=== PATIENT | female | born 1970 | race American Indian/Alaskan Native ===

== ENCOUNTER 2017-12-09 19:44 | Emergency (ER) | payer SELFPAY ==
[2017-12-09] MEDS ORDERED: NACL 0.9% 1000 ML 1,000 ML IV ONE (20:42)
[2017-12-09 20:56] LABS: Basophils # (Auto) 0.1 K/mm3 (0.0-0.1); Basophils % (Auto) 1.1 % (0.0-1.8); Eosinophils # (Auto) 0.1 K/mm3 (0.0-0.4); Eosinophils % (Auto) 1.6 % (0.0-4.3); Hematocrit 31.6 % (30.3-42.9); Hemoglobin 10.1 gm/dl (10.1-14.3); Lymphocytes # (Auto) 2.7 K/mm3 (1.2-5.4); Lymphocytes % (Auto) 39.1 % (13.4-35.0); Mean Corpuscular HGB Conc 32 % (30-34); Mean Corpuscular Volume 71 fl (79-97); Monocytes # (Auto) 0.4 K/mm3 (0.0-0.8); Monocytes % (Auto) 6.3 % (0.0-7.3); Platelet Count 321 K/mm3 (140-440); Red Blood Count 4.49 M/mm3 (3.65-5.03)
[2017-12-09 21:10] LABS: Alanine Aminotransferase 8 units/L (7-56); Albumin 3.8 g/dL (3.9-5); BUN/Creatinine Ratio 14; Blood Urea Nitrogen 10 mg/dL (7-17); Calcium 8.7 mg/dL (8.4-10.2); Hemolysis Index 3
[2017-12-09 21:13] LABS: Mean Corpuscular Hemoglobin 23 pg (28-32); Red Cell Distribution Width 22.5 % (13.2-15.2)
[2017-12-09 22:16] LABS: Bilirubin,Urine NEG (Negative); Color,Urine Yellow (Yellow)
[2017-12-09 22:17] LABS: Blood,Urine NEG (Negative); Mucus,Urine 1+ /HPF; Urobilinogen,Urine < 2.0 mg/dL (<2.0); WBC,Urine < 1.0 /HPF (0.0-6.0)
--- NOTE | 2017-12-10 02:21 | Emergency Department Report ---
<ZEE WOLFF - Last Filed: 12/10/17 05:40> ED Abdominal Pain HPI - General Chief Complaint: Abdominal Pain Stated Complaint: SEVERE STOMACH/BACK PAIN Time Seen by Provider: 12/10/17 02:19 Source: patient, RN notes reviewed Mode of arrival: Ambulatory Limitations: No Limitations - History of Present Illness Initial Comments: This is a 47-year-old female who is on known to this provider previously. Her past medical history includes diabetes, hypertension, obesity, diverticulitis. She reports a partial colonic resection in 2010. The patient presents to the ER with a complaint of intermittent right flank pain , and right lower quadrant pain. It has been present for 6 days. It is intermittent. It does not radiate anywhere. Pain increases with palpation. It decreases with rest. There is no vomiting, there is nausea, there is no dysuria. Patient endorses constipation. There is no headache, neck pain, chest pain, there is no left lower quadrant pain, there is no extremity pain, weakness or numbness. Patient presented to the ER because she reports that her pain got worse. MD Complaint: abdominal pain, flank pain -: Gradual Location: RLQ, R flank Radiation: R flank, back Severity: moderate Quality: aching Consistency: intermittent Improves With: other Worsens With: other Associated Symptoms: nausea, constipation. denies: vomiting, diarrhea, fever, chills, dysuria, hematemesis, hematochezia, melena, hematuria, anorexia, syncope - Related Data Previous Rx's Medication Instructions Recorded Last Taken Type Acetaminophen [Tylenol Arthritis] 650 mg PO Q6HR PRN #30 tablet.er 12/10/17 Unknown Rx Ibuprofen [Motrin] 600 mg PO Q8H PRN #30 tablet 12/10/17 Unknown Rx Ondansetron [Zofran Odt] 4 mg PO Q8HR PRN #20 tab.rapdis 12/10/17 Unknown Rx Allergies Allergy/AdvReac Type Severity Reaction Status Date / Time lisinopril Allergy Hives Verified 12/09/17 20:38 ED Review of Systems ROS: Stated complaint: SEVERE STOMACH/BACK PAIN Other details as noted in HPI Comment: All other systems reviewed and negative ED Past Medical Hx - Past Medical History Previous Medical History?: Yes Hx Hypertension: Yes Hx Diabetes: Yes Hx Asthma: Yes Additional medical history: diverticulitis - Surgical History Past Surgical History?: Yes Additional Surgical History: colon - Social History Smoking Status: Never Smoker Substance Use Type: Alcohol - Medications Home Medications: Home Medications Medication Instructions Recorded Confirmed Last Taken Type Acetaminophen [Tylenol Arthritis] 650 mg PO Q6HR PRN #30 tablet.er 12/10/17 Unknown Rx Ibuprofen [Motrin] 600 mg PO Q8H PRN #30 tablet 12/10/17 Unknown Rx Ondansetron [Zofran Odt] 4 mg PO Q8HR PRN #20 tab.rapdis 12/10/17 Unknown Rx ED Physical Exam - General Limitations: No Limitations General appearance: alert, obese - Head Head exam: Present: atraumatic, normocephalic - Eye Eye exam: Present: normal appearance, EOMI. Absent: scleral icterus - ENT ENT exam: Present: normal exam, normal orophraynx, mucous membranes moist, normal external ear exam - Neck Neck exam: Present: normal inspection, full ROM. Absent: tenderness, meningismus - Respiratory Respiratory exam: Present: normal lung sounds bilaterally. Absent: respiratory distress - Cardiovascular Cardiovascular Exam: Present: regular rate, normal rhythm, normal heart sounds. Absent: bradycardia, tachycardia, irregular rhythm, systolic murmur, diastolic murmur, rubs, gallop - GI/Abdominal GI/Abdominal exam: Present: soft, tenderness, other (there is right lower quadrant tenderness, there is right flank tenderness, there is right upper quadrant tenderness, there is right CVA tenderness). Absent: distended, guarding, rebound, rigid, pulsatile mass - Speculum exam: Present: normal speculum exam, vaginal bleeding Bi-manual exam: Present: adnexal tenderness (right), other (chaperoned by nurse Sandra Christianson). Absent: cervical motion tendernes, adnexal mass, uterine enlargement, uterine tenderness - Extremities Exam Extremities exam: Present: normal inspection, full ROM, normal capillary refill , other (2+ pulses noted in the bilateral upper, lower extremities. Compartments soft. No long bony tenderness. The pelvis is stable.). Absent: tenderness, pedal edema, joint swelling, calf tenderness - Back Exam Back exam: Present: normal inspection, full ROM, CVA tenderness (R). Absent: tenderness, paraspinal tenderness, vertebral tenderness - Neurological Exam Neurological exam: Present: alert, oriented X3, CN II-XII intact, normal gait, other (Extraocular movements intact. Tongue midline. No facial droop. Facial sensation intact to light touch in the V1, V2, V3 distribution bilaterally. 5 and 5 strength in 4 extremities.. Sensation is intact to light touch in 4 extremities.). Absent: motor sensory deficit - Psychiatric Psychiatric exam: Present: normal affect, normal mood - Skin Skin exam: Present: warm, dry, intact, normal color. Absent: rash ED Course Vital Signs 12/09/17 12/10/17 12/10/17 20:39 05:36 06:51 Temperature 98.6 F Pulse Rate 77 Respiratory 16 Rate Blood Pressure 175/99 132/80 O2 Sat by Pulse 98 99 100 Oximetry - Reevaluation(s) Reevaluation #1: 12/10/17 03:40 Differential diagnosis, including but not limited to: Pneumonia, biliary colic, renal colic, intra-abdominal infection, appendicitis, perforated viscus, constipation, colitis, malignancy Assessment and plan: 47-year-old female with progressive right-sided abdominal pain, in the right CVA, right upper quadrant, right flank and right lower quadrant. She is tender but afebrile with reassuring vital signs. Her pain will be treated with hydromorphone, laboratory studies reviewed and they are unremarkable, and a CT scan of the abdomen and pelvis is pending at this time. Reevaluation #2: 12/10/17 05:40 CT scan of the abdomen and pelvis is negative for acute disease. Patient reports her pain is improved. We have performed a gynecologic exam and she has right adnexal tenderness. She is also finishing up her menstruation. Pelvic ultrasound ordered. Sunshine be transferred to the oncoming physician, Dr. Okeefe, to follow-up on ultrasound, and if negative, discharge with outpatient obstetrics follow-up. ED Medical Decision Making - Lab Data Result diagrams: 12/09/17 20:45 12/09/17 20:45 Vital Signs 12/09/17 20:39 Temperature 98.6 F Pulse Rate 77 Respiratory 16 Rate Blood Pressure 175/99 O2 Sat by Pulse 98 Oximetry Lab Results 12/09/17 12/09/17 12/09/17 Range/Units 20:45 20:45 21:49 WBC 6.9 (4.5-11.0) K/mm3 RBC 4.49 (3.65-5.03) M/mm3 Hgb 10.1 (10.1-14.3) gm/dl Hct 31.6 (30.3-42.9) % MCV 71 L (79-97) fl MCH 23 L (28-32) pg MCHC 32 (30-34) % RDW 22.5 H (13.2-15.2) % Plt Count 321 (140-440) K/mm3 Lymph % (Auto) 39.1 H (13.4-35.0) % [place] % (Auto) 6.3 (0.0-7.3) % Eos % (Auto) 1.6 (0.0-4.3) % Baso % (Auto) 1.1 (0.0-1.8) % Lymph # 2.7 (1.2-5.4) K/mm3 [place] # 0.4 (0.0-0.8) K/mm3 Eos # 0.1 (0.0-0.4) K/mm3 Baso # 0.1 (0.0-0.1) K/mm3 Seg Neutrophils % 51.9 (40.0-70.0) % Seg Neutrophils # 3.6 (1.8-7.7) K/mm3 Sodium 138 (137-145) mmol/L Potassium 4.0 (3.6-5.0) mmol/L Chloride 103.4 (98-107) mmol/L Carbon Dioxide 24 (22-30) mmol/L Anion Gap 15 mmol/L BUN 10 (7-17) mg/dL Creatinine 0.7 (0.7-1.2) mg/dL Estimated GFR > 60 ml/min BUN/Creatinine Ratio 14 % Glucose 113 H (65-100) mg/dL Calcium 8.7 (8.4-10.2) mg/dL Total Bilirubin 0.20 (0.1-1.2) mg/dL AST 12 (5-40) units/L ALT 8 (7-56) units/L Alkaline Phosphatase 45 (35-129) units/L Total Protein 7.1 (6.3-8.2) g/dL Albumin 3.8 L (3.9-5) g/dL Albumin/Globulin Ratio 1.2 % Urine Color Yellow (Yellow) Urine Turbidity Clear (Clear) Urine pH 6.0 (5.0-7.0) Ur Specific [place] 1.023 (1.003-1.030) Urine Protein 30 mg/dl (Negative) mg/dL Urine Glucose (UA) Neg (Negative) mg/dL Urine Ketones Neg (Negative) mg/dL Urine Blood Neg (Negative) Urine Nitrite Neg (Negative) Urine Bilirubin Neg (Negative) Urine Urobilinogen < 2.0 (<2.0) mg/dL Ur Leukocyte Esterase Neg (Negative) Urine WBC (Auto) < 1.0 (0.0-6.0) /HPF Urine RBC (Auto) 3.0 (0.0-6.0) /HPF U Epithel Cells (Auto) < 1.0 (0-13.0) /HPF Urine Mucus 1+ /HPF Urine HCG, Qual (Negative) 12/10/17 Range/Units Unknown WBC (4.5-11.0) K/mm3 RBC (3.65-5.03) M/mm3 Hgb (10.1-14.3) gm/dl Hct (30.3-42.9) % MCV (79-97) fl MCH (28-32) pg MCHC (30-34) % RDW (13.2-15.2) % Plt Count (140-440) K/mm3 Lymph % (Auto) (13.4-35.0) % [place] % (Auto) (0.0-7.3) % Eos % (Auto) (0.0-4.3) % Baso % (Auto) (0.0-1.8) % Lymph # (1.2-5.4) K/mm3 [place] # (0.0-0.8) K/mm3 Eos # (0.0-0.4) K/mm3 Baso # (0.0-0.1) K/mm3 Seg Neutrophils % (40.0-70.0) % Seg Neutrophils # (1.8-7.7) K/mm3 Sodium (137-145) mmol/L Potassium (3.6-5.0) mmol/L Chloride (98-107) mmol/L Carbon Dioxide (22-30) mmol/L Anion Gap mmol/L BUN (7-17) mg/dL Creatinine (0.7-1.2) mg/dL Estimated GFR ml/min BUN/Creatinine Ratio % Glucose (65-100) mg/dL Calcium (8.4-10.2) mg/dL Total Bilirubin (0.1-1.2) mg/dL AST (5-40) units/L ALT (7-56) units/L Alkaline Phosphatase (35-129) units/L Total Protein (6.3-8.2) g/dL Albumin (3.9-5) g/dL Albumin/Globulin Ratio % Urine Color (Yellow) Urine Turbidity (Clear) Urine pH (5.0-7.0) Ur Specific [place] (1.003-1.030) Urine Protein (Negative) mg/dL Urine Glucose (UA) (Negative) mg/dL Urine Ketones (Negative) mg/dL Urine Blood (Negative) Urine Nitrite (Negative) Urine Bilirubin (Negative) Urine Urobilinogen (<2.0) mg/dL Ur Leukocyte Esterase (Negative) Urine WBC (Auto) (0.0-6.0) /HPF Urine RBC (Auto) (0.0-6.0) /HPF U Epithel Cells (Auto) (0-13.0) /HPF Urine Mucus /HPF Urine HCG, Qual Negative (Negative) Critical care attestation.: If time is entered above; I have spent that time in minutes in the direct care of this critically ill patient, excluding procedure time. ED Disposition Clinical Impression: Abdominal pain, DUB (dysfunctional uterine bleeding) Disposition: TO HOME OR SELFCARE Is pt being admited?: No Does the pt Need Aspirin: No Condition: Good Instructions: Dysfunctional Uterine Bleeding (ED) Additional Instructions: Cultures were sent today, results will be available in the next 3-5 days. Have a barrel drainer or primary care doctor contact the medical records department to obtain culture results. Follow up with a barrel drainer within the next 5-7 days. Return to the ER right away with new pain, worsened pain, migration of pain, productive vomiting, change in mental status, confusion, inability to tolerate liquid feedings. Prescriptions: Acetaminophen [Tylenol Arthritis] 650 mg PO Q6HR PRN #30 tablet.er PRN Reason: Pain Ibuprofen [Motrin] 600 mg PO Q8H PRN #30 tablet PRN Reason: Pain Ondansetron [Zofran Odt] 4 mg PO Q8HR PRN #20 tab.rapdis PRN Reason: Nausea Referrals: PRIMARY CARE, [Primary Care Provider] - 3-5 Days [facility] [Provider Group] - 3-5 Days [facility] [Provider Group] - 3-5 Days [facility] [Provider Group] - 3-5 Days <MARTINEZMALLIKA C - Last Filed: 12/10/17 07:35> ED Medical Decision Making - Lab Data Result diagrams: 12/09/17 20:45 12/09/17 20:45 - Radiology Data Radiology results: report reviewed FINAL REPORT PROCEDURE: US PELVIS transvaginal TECHNIQUE: Real-time transvaginal sonography in multiple planes of pelvis was performed with image documentation. This examination was performed with doppler. HISTORY: pelvic pain COMPARISON: No prior studies are available for comparison. FINDINGS: UTERUS Size: 10.4 x 6.1 x 6.5 cm. Endometrial thickness: 12.3 mm. Orientation: anteverted. Cervix: Normal. Fibroids/masses: None. RIGHT Ovary: Not identified. LEFT Ovary: 3.3 x 2.1 x 3 cm. Appearance: Normal. Normal blood flow. There is no evidence of torsion. Pelvic fluid: None. Other: None. IMPRESSION: Normal uterus and left ovary. The right ovary is not seen. There is no free pelvic fluid. ED Disposition Is pt being admited?: No Does the pt Need Aspirin: No Time of Disposition: 07:35
[2017-12-10] MEDS ORDERED: DILAUDID IV ONE (02:30)
[2017-12-10] MEDS ORDERED: ZOFRAN IV ONE (02:30)
[2017-12-10 02:40] LABS: HCG Qualitative,Urine Negative (Negative)
[2017-12-10] MEDS ORDERED: NACL 0.9% 50 ML ONE (02:51)
--- NOTE | 2017-12-10 04:37 | Cat Scan Report ---
FINAL REPORT PROCEDURE: CT ABDOMEN PELVIS W CON TECHNIQUE: Computerized axial tomography of the abdomen and pelvis was performed after the IV injection of iodinated nonionic contrast. HISTORY: abd pain COMPARISON: No prior studies are available for comparison. FINDINGS: Visualized lower thorax: No significant abnormality. Liver: Normal size and attenuation. Spleen: Normal size and attenuation. Gallbladder and biliary system: Normal. Pancreas: Normal. Adrenals: Normal. Kidneys: Normal. GI tract: There is no bowel obstruction, colitis or enteritis. There has been prior colon surgery. The appendix is normal . Lymph nodes and mesentery: Normal. Vasculature: Normal. Bladder: Normal. Reproductive organs: Uterus and ovaries are intact.. Peritoneum: There is no ascites or free air, abscess or adenopathy.. Musculoskeletal structures: No significant abnormality. Other: None. IMPRESSION: There is no bowel obstruction, colitis or enteritis. There has been prior colon surgery. The appendix is normal . Uterus and ovaries are intact.. There is no ascites or free air, abscess or adenopathy..
--- NOTE | 2017-12-10 06:28 | Ultrasound Report ---
FINAL REPORT PROCEDURE: US PELVIS DUPLEX DOPPLER COMP TECHNIQUE: Real-time transabdominal sonography in multiple planes of pelvis was performed with image documentation. This examination was performed without Doppler. Vascular abnormalities, including ovarian torsion, will not be detectable without Doppler evaluation. CPT 30773 HISTORY: pelvic pain COMPARISON: No prior studies are available for comparison. FINDINGS: UTERUS Size: 10.4 x 6.1 x 6.5 cm. Endometrial thickness: 12.3 mm. Orientation: anteverted. Cervix: Normal. Fibroids/masses: None. RIGHT Ovary: Not identified. LEFT Ovary: 3.3 x 2.1 x 3 cm. Appearance: Normal. Pelvic fluid: None. Other: None. IMPRESSION: Normal uterus and left ovary. The right ovary is not seen. There is no free pelvic fluid.
--- NOTE | 2017-12-10 06:30 | Ultrasound Report ---
FINAL REPORT PROCEDURE: US PELVIS transvaginal TECHNIQUE: Real-time transvaginal sonography in multiple planes of pelvis was performed with image documentation. This examination was performed with doppler. HISTORY: pelvic pain COMPARISON: No prior studies are available for comparison. FINDINGS: UTERUS Size: 10.4 x 6.1 x 6.5 cm. Endometrial thickness: 12.3 mm. Orientation: anteverted. Cervix: Normal. Fibroids/masses: None. RIGHT Ovary: Not identified. LEFT Ovary: 3.3 x 2.1 x 3 cm. Appearance: Normal. Normal blood flow. There is no evidence of torsion. Pelvic fluid: None. Other: None. IMPRESSION: Normal uterus and left ovary. The right ovary is not seen. There is no free pelvic fluid.
[2017-12-10 08:11] VITALS: BP 136/85
== END 2017-12-10 08:06 | disposition home or self-care (01) ==
LOC: ED 19:44
DX: N93.8 Other specified abnormal uterine and vaginal bleeding (principal); K59.00 Constipation, unspecified; I10 Essential (primary) hypertension; E11.9 Type 2 diabetes mellitus without complications; J45.909 Unspecified asthma, uncomplicated; Z88.8 Allergy status to other drugs, medicaments and biological substances
CPT/HCPCS: 36415; 74177; 76830; 80053; 81001; 81025; 85025; 87210; 87591; 93975; 96374; 96375; 99284; J1170; J2405; J7030; Q9967

== ENCOUNTER 2020-07-04 10:09 | Outpatient (CLI) | payer MEDICAID ==
--- NOTE | 2020-07-04 12:43 | Fluoroscopy Report ---
Barium swallow Indication: GASTRO-ESOPHAGEAL REFLUX DISEASE WITHOUT ESOPHAGITIS. Technique: Single and double contrast barium technique utilized to evaluate the esophagus. Findings: No mucosal irregularity, mass, mass effect, or critical stenosis. There were no abnormal tertiary contractions as seen with dysmotility. No gastroesophageal reflux. Impression: Unremarkable exam. Fluoroscopic time: 0.7 minutes Number of fluoroscopic images: 11 Signer Name: Remberto Sena MD Signed: 07/04/2020 12:37 PM Workstation Name: [id number]
== END 2020-07-04 10:10 | disposition home or self-care (01) ==
LOC: FLUORO 10:09
PROVIDERS: ATTEND Surgery
DX: K21.9 Gastro-esophageal reflux disease without esophagitis (principal)
CPT/HCPCS: 74246

== ENCOUNTER 2020-08-22 11:14 | Outpatient (CLI) | payer MEDICAID | END 2020-08-22 11:15 | disposition home or self-care (01) | LOC: CARD 11:14 | PROVIDERS: ATTEND Surgery | DX: Z01.818 Encounter for other preprocedural examination (principal); E66.01 Morbid (severe) obesity due to excess calories | CPT/HCPCS: 93005; 93017 ==

== ENCOUNTER 2020-08-29 11:00 | Outpatient (CLI) | payer MEDICAID | END 2020-08-29 11:01 | disposition home or self-care (01) | LOC: SLR 11:00 | PROVIDERS: ATTEND Surgery | DX: G47.30 Sleep apnea, unspecified (principal) | CPT/HCPCS: 95810 ==

== ENCOUNTER → 2020-10-17 | Outpatient (CLI) | payer MEDICAID ==
--- NOTE | 2020-10-30 22:48 | Pulmonary Function Test ---
DATE OF VISIT: 10/17/2020 NO DICTATION TID: [id number] RECEIPT: [id number] JONO
--- NOTE | 2020-10-30 23:45 | Pulmonary Function Test ---
DATE OF VISIT: 10/20/2020 SPIROMETRY: FVC 2.41 liters, which is 82% of the predicted. FEV1 is 2.04 liters, which is 86% of the predicted. FEV1/FVC ratio is 85. Flow volume loop. FEF 25-75% is 2.45 liters per second, which is 97% of predicted. IMPRESSION: Normal spirometry. TID: [id number] RECEIPT: [id number] ALESHIA/MARTY
--- NOTE | 2021-02-05 03:21 | Pulmonary Function Test ---
DATE OF VISIT: 10/20/2020 SPIROMETRY REPORT SPIROMETRY: FVC 2.41 L, which is 82% of the predicted. FEV1 is 2.44, which is 86% of the predicted. FEV1/FVC ratio is 85 and flow volume loop, FEF 25-75%, 2.4 liters per second, which is 97% of the predicted. MVV is 61% of the predicted. Tidal volume absolute is 0.71 liters. IMPRESSION: Normal spirometry. TID: [id number] RECEIPT: [id number] RSM/NIS
== END | disposition home or self-care (01) ==
LOC: SLR 11:00
PROVIDERS: ATTEND Surgery
DX: G47.33 Obstructive sleep apnea (adult) (pediatric) (principal)
CPT/HCPCS: 95811

== ENCOUNTER 2020-10-20 14:02 | Outpatient (CLI) | payer MEDICAID | END 2020-10-20 14:03 | disposition home or self-care (01) | LOC: PF 14:02 | PROVIDERS: ATTEND Surgery | DX: E66.2 Morbid (severe) obesity with alveolar hypoventilation (principal) | CPT/HCPCS: 94010 ==

== ENCOUNTER 2021-03-09 06:04 | Inpatient (IN) | payer MEDICAID ==
[2021-03-03 10:45] LABS: Hematocrit 40.9 % (30.3-42.9); Hemoglobin 13.2 gm/dl (10.1-14.3); Mean Corpuscular HGB Conc 32 % (30-34); Mean Corpuscular Volume 83 fl (79-97); Platelet Count 323 K/mm3 (140-440); Red Blood Count 4.93 M/mm3 (3.65-5.03); Red Cell Distribution Width 14.8 % (13.2-15.2)
[2021-03-03 11:11] LABS: Alanine Aminotransferase 11 units/L (7-56); Albumin 4.2 g/dL (3.9-5); Blood Urea Nitrogen 18 mg/dL (7-17); Calcium 9.6 mg/dL (8.4-10.2); Hemolysis Index 0
[2021-03-03 11:13] LABS: BUN/Creatinine Ratio 30
--- NOTE | 2021-03-03 11:19 | Anesthesia Consultation ---
Anesthesia Consult and Med Hx Date of service: 03/09/21 - Airway Anesthetic Teeth Evaluation: Good ROM Head & Neck: Adequate Mental/Hyoid Distance: Adequate Mallampati Class: Class II Intubation Access Assessment: Probably Good - Pulmonary Exam CTA: Yes - Cardiac Exam Cardiac Exam: RRR - Pre-Operative Health Status ASA Pre-Surgery Classification: ASA3 Proposed Anesthetic Plan: General - Pulmonary Hx Smoking: No Hx Asthma: Yes (triggered by seasonal allergies) Hx Respiratory Symptoms: No (normal spirometry) Hx Sleep Apnea: Yes (+ CPAP) - Cardiovascular System Hx Hypertension: Yes Hx Heart Attack/AMI: No (negative stress test) Hx Percutaneous Transluminal Coronary Angioplasty (PTCA): No Hx Cardia Arrhythmia: No - Central Nervous System CVA: No - Endocrine Hx Renal Disease: No Hx Liver Disease: No Hx Insulin Dependent Diabetes: Yes Hx Thyroid Disease: No - Hematic Hx Anemia: Yes - Other Systems Hx Obesity: Yes (BMI 43) - Additional Comments Anesthesia Medical History Comments: No hx anesthetic complications.
[~2021-03-09 06:04] MED LIST: ACETAMINOPHEN IV 1,000 MG/100 ML BOTTLE IV NR; ENOXAPARIN 40 MG/0.4 ML INJ SUB-Q NR; GABAPENTIN 500 MG/10 ML ORAL LIQD PO NR; LACTATED RINGERS 1,000 ML IV SCH; MIDAZOLAM 2 MG/2 ML INJ IV NR; SCOPOLAMINE TRANSDERMAL PATCH 72 HR TD NR; methOCARBAMOL 1,000 MG in SODIUM CHLORIDE 0.9% 250ML 250 ML IV SCH
[2021-03-09] MEDS ORDERED: BUPIVACAINE/PF (0.25%) 2.5 MG/ML 30 ML VIAL INFILTRATI ONE ×2 (07:08→08:48)
[2021-03-09] MEDS ORDERED: LIDOCAINE 1%/EPINEPHRINE 1:100,000 VIAL (20 ML) INFILTRATI ONE (07:09)
--- NOTE | 2021-03-09 07:20 | Anesthesia Day of Surgery ---
Anesthesia Day of Surgery - Day of Surgery Patient Examined: Yes Patient H&P Reviewed: Yes Patient is NPO: Yes
[2021-03-09] MEDS ORDERED: ROCURONIUM 50 MG/5 ML INJ IV ONE ×2 (07:37→11:23)
[2021-03-09] MEDS ORDERED: dexAMETHasone 20 MG/5 ML VIAL ONE ×2 (07:37→07:39)
[2021-03-09] MEDS ORDERED: KETOROLAC 30 MG/1 ML INJ ONE (07:37)
[2021-03-09] MEDS ORDERED: LIDOCAINE MPF (2%) 20 MG/1 ML VIAL 5 ML ONE ×4 (07:37→07:39)
[2021-03-09] MEDS ORDERED: MAGNESIUM SULFATE 4 GM/100 ML BAG IV ONE (07:42)
[2021-03-09] MEDS ORDERED: SODIUM CHLORIDE P/F VIAL 10 ML 10 ML ONE (07:43)
[2021-03-09] MEDS ORDERED: HYDROmorphone 1 MG/1 ML INJ IV PRN ×3 (08:00→13:00)
[2021-03-09] MEDS ORDERED: PIPERACIL/TAZOBACTA 4.5/NS 100 4.5 GM/100 ML VIAL IV SCH (08:00)
[2021-03-09] MEDS ORDERED: ONDANSETRON 4 MG/2 ML INJ IV PRN ×2 (08:00→13:00)
[2021-03-09] MEDS ORDERED: LIDOCAINE/EPI 1% 1:50,000 (OR) 20 ML VIAL INFILTRATI ONE (08:48)
[2021-03-09] MEDS ORDERED: SODIUM CHLORIDE 0.9% IRR 1,500 ML BOTTLE IR ONE (08:48)
[2021-03-09] MEDS ORDERED: SODIUM CHLORIDE 0.9% IRRIG SOLN 2000 ML IR ONE (08:48)
[2021-03-09] MEDS ORDERED: NEOSTIGMINE 10MG/10 ML INJ MDV ONE (11:33)
[2021-03-09] MEDS ORDERED: GLYCOPYRROLATE 0.4 MG/2 ML INJ ONE (11:33)
[2021-03-09] MEDS ORDERED: NON-FORMULARY EACH (Albuterol Sulfate [Proair Respiclick] 90 MCG Aer.Pow.Ba) IH PRN (11:34)
--- NOTE | 2021-03-09 11:43 | Operative Report ---
Operative Report Operative Report: DATE OF PROCEDURE: 03/09/2021 SURGEON: Juanito Kendall M.D. AIRPORT REFUELING HANDLER: Lucie Julien CSA MD PREOPERATIVE DIAGNOSIS: Morbid obesity. POSTOPERATIVE DIAGNOSES: Morbid obesity PROCEDURES PERFORMED: 1. Laparoscopic gastric bypass. 2. laparoscopic hiatal hernia repair 3. Extensive lysis of adhesions ANESTHESIA: General endotracheal tube intubation. SPECIMENS: None. ESTIMATED BLOOD LOSS: Less than 20 mL. FINDINGS: Normal anatomy. COMPLICATIONS: None. INDICATION: Ms. Castillo is a 50-year-old female with history of morbid obesity and DM, HTN, high cholesterol who is here for bariatric surgery for weight loss. She signed informed consent and expressed understanding of risks and benefits. DESCRIPTION OF PROCEDURE: Patient was brought to the OR suite, laid in supine position. Bilateral lower extremity SCDs were placed. General anesthesia was induced via successful endotracheal tube intubation. Patient's abdomen was prepped and draped in sterile fashion. A veress needle was used to insuflate the abdomen to a pressure of 15 mmHg in the left subcostal region. Using Optiview technique, a 5- mm trocar was placed into the abdominal cavity under direct vision just superior and to the left of the umbilicus. There was noted to be no gross injury to any intraabdominal structures. 12 mm in the right mid abdomen mid clavicular line and three 5-mm trocars in the right upper quadrant, epigastric areas were placed under direct visualization. There was noted to be extensive omental adhesions to the small bowel and colon, as well as a loop of colon densely adhered to the anterior abdominal wall and of the umbilicus. It took approximately 45 minutes to carefully lyse adhesions to allow for enough small bowel to perform the bypass. At this time, the ligament of Treitz identified and followed down approximately 75 cm and the jejunum was transected. The distal segment of jejunum was then traced for approximately 100 cm and a stable [id number] jejunojejunostomy was performed. The common enterotomy was closed with 2 firings of the endoscopic stapler. The mesenteric defect was closed with running Surgidac suture. This anastomosis was found to be patent without kink, obstruction or bleeding. At this time, the patient was placed in steep reverse Trendelenburg position. A liver retractor was placed through the epigastric port to elevate the left lateral lobe of the liver. There was noted to be a significant hiatal hernia, with the GE junction ap proximately 1 to 2 cm above the level diaphragm. The hiatal hernia sac was dissected free from the distal esophagus and proximal stomach until the GE junction was resting without tension about 2 cm below the diaphragm. After this an anterior crura plasty was performed using Surgidac suture in a U stitch fashion. A small gastric pouch was formed with serial firings of the blue load on a laparoscopic stapler. The Tosin limb was then brought in an antegastric antecolic fashion and secured with 2 stay sutures to the gastric pouch. After this, the enterotomies were made with Harmonic scalpel, and a [id number] stapled gastrojejunostomy was performed with a mechanical stapler. After this, a 2-layer running closure using absorbable V-lock suture were done, the first being mucosal approximation prior to completion of the first layer. Then I passed and an EGD scope beyond the anastomosis to act as a stent. The first layer was completed, the second was then performed. After this, the EGD was retracted slightly. A bowel clamp was placed in a proximal Tosin limb. The anastomosis was submerged under saline. Via intraluminal EGD insufflation, there was noted be no bubbles in the saline indicating an airtight anastomosis. There was noted to be no obstruction or bleeding intraluminally in the pouch or the anastomosis. At this time, the scope was removed. The saline was aspirated. Vistaseal was placed over the anastomosis. All trocars were removed under direct visualization and the abdomen was then desufflated. A TAP block was performed using a total of 60 mL 0.25% Marcaine along bilateral mid axillary lines starting at the subcostal margin at the level of the umbilicus. The 12mm trocar site was closed using POD and a Alexis Peri device for fear that after surgery it become incarcerated. The skin incisions were closed with 4-0 Monocryl followed by Dermabond dressings. Patient was awoken and taken to recovery in stable condition. All counts were correct.
[2021-03-09] MEDS ORDERED: SIMETHICONE 80 MG CHEW TAB PO PRN (13:00)
[2021-03-09] MEDS ORDERED: METOCLOPRAMIDE 10 MG/2 ML INJ IV PRN (13:00)
[2021-03-09] MEDS ORDERED: MORPHINE 2 MG/1 ML INJ IV PRN (13:00)
[2021-03-09] MEDS ORDERED: hydrALAZINE 20 MG/1 ML INJ IV PRN (13:00)
[2021-03-09] MEDS ORDERED: LACTATED RINGERS 1,000 ML IV SCH (13:00)
[2021-03-09] MEDS ORDERED: LORazepam 1 MG TAB PO PRN (13:00)
[2021-03-09] MEDS ORDERED: DEXTROSE 50% IN WATER (25GM) 50 ML SYRINGE IV PRN (13:00)
[2021-03-09] MEDS ORDERED: GABAPENTIN 300 MG CAP PO SCH (13:00)
[2021-03-09] MEDS ORDERED: ALBUTEROL 8.5 GM MDI INHALATION IH PRN (13:00)
[2021-03-09] MEDS: KETOROLAC 30 MG/1 ML INJ IV SCH ×2 (16:49→22:17)
[2021-03-09] MEDS: ACETAMINOPHEN IV 1,000 MG/100 ML BOTTLE IV SCH ×2 (16:53→19:00)
--- NOTE | 2021-03-09 17:23 | Post Anesthesia Evaluation ---
- Post Anesthesia Evaluation Patient Participated: Yes Airway Patent: Yes Stable Respiratory Function: Yes Nausea/Vomiting: No Temp > 96.8F: Yes Pain Manageable: Yes Adequeate Hydration: Yes Anesthesia Complications: No Block Receding Appropriately: Not Applicable Patient on Ventilator: No
[2021-03-09] MEDS: PANTOPRAZOLE 40 MG INJ IV SCH (18:06)
[2021-03-10] MEDS: ACETAMINOPHEN IV 1,000 MG/100 ML BOTTLE IV SCH ×4 (01:00→17:55)
[2021-03-10] MEDS: KETOROLAC 30 MG/1 ML INJ IV SCH ×4 (01:22→20:52)
[2021-03-10 06:54] LABS: Basophils # (Auto) 0.1 K/mm3 (0.0-0.1); Basophils % (Auto) 0.8 % (0.0-1.8); Eosinophils % (Auto) 0.1 % (0.0-4.3); Hematocrit 37.3 % (30.3-42.9); Lymphocytes # (Auto) 1.5 K/mm3 (1.2-5.4); Lymphocytes % (Auto) 20.5 % (13.4-35.0); Mean Corpuscular HGB Conc 32 % (30-34); Mean Corpuscular Volume 84 fl (79-97); Monocytes # (Auto) 0.5 K/mm3 (0.0-0.8); Monocytes % (Auto) 6.5 % (0.0-7.3); Platelet Count 259 K/mm3 (140-440); Red Blood Count 4.43 M/mm3 (3.65-5.03); Red Cell Distribution Width 15.4 % (13.2-15.2)
[2021-03-10 07:31] LABS: Alanine Aminotransferase 46 units/L (7-56); Albumin 3.6 g/dL (3.9-5); Blood Urea Nitrogen 6 mg/dL (7-17); Calcium 8.6 mg/dL (8.4-10.2); Hemolysis Index 7
[2021-03-10 07:33] LABS: BUN/Creatinine Ratio 9
[2021-03-10] MEDS: PANTOPRAZOLE 40 MG INJ IV SCH (09:01)
[2021-03-10] MEDS: ENOXAPARIN 40 MG/0.4 ML INJ SUB-Q SCH (09:01)
[2021-03-10] MEDS ORDERED: NON-FORMULARY EACH (Losartan Potassium [Losartan Potassium] 100 MG Tablet) PO SCH (10:00)
[2021-03-10] MEDS ORDERED: LOSARTAN 50 MG TAB PO SCH (10:00)
[2021-03-10] MEDS: FLUTICASONE PROPIONATE NASAL SPRAY 16 GM NS SCH (10:34)
--- NOTE | 2021-03-10 16:07 | Progress Note ---
Assessment and Plan Postop day #1 status post laparoscopic gastric bypass with hiatal hernia repair. Afebrile and stable. Encouraged regular ambulation and more frequent sipping of liquids. Observe an additional night telemetry increase oral intake so she can be discharged tomorrow with lower risk of becoming dehydrated at home. Subjective Date of service: 03/10/21 Narrative: No acute events overnight. Patient says pain is controlled. Patient denies any significant nausea, and has no vomiting. Patient says that she is taking liquids well but only in small amounts due to chest discomfort. Objective Vital Signs - 12hr 03/10/21 03/10/21 03/10/21 05:21 07:58 08:50 Temperature 99.0 F 98.6 F Pulse Rate 83 94 H Respiratory 18 18 Rate Blood Pressure 150/95 Blood Pressure 134/83 [Left] O2 Sat by Pulse 98 98 98 Oximetry 03/10/21 03/10/21 03/10/21 09:01 13:43 13:47 Temperature 98.4 F Pulse Rate 94 H Respiratory Rate Blood Pressure 150/95 170/106 144/88 Blood Pressure [Left] O2 Sat by Pulse Oximetry 03/10/21 13:50 Temperature Pulse Rate Respiratory 18 Rate Blood Pressure Blood Pressure [Left] O2 Sat by Pulse 98 Oximetry - General physical appearance no distress, no pain, obese - Eyes PERRL - ENT no hearing loss - Respiratory normal expansion, normal respiratory effort - Abdomen soft, other (incisions c/d/i, appropriatley tender to palpation) - Labs 03/10/21 06:33 03/10/21 06:36 Diabetes panel 03/10/21 Range/Units 06:36 Sodium 138 (137-145) mmol/L Potassium 4.1 (3.6-5.0) mmol/L Chloride 104.2 (98-107) mmol/L Carbon Dioxide 23 (22-30) mmol/L BUN 6 L (7-17) mg/dL Creatinine 0.7 (0.6-1.2) mg/dL Glucose 110 H (65-100) mg/dL Calcium 8.6 (8.4-10.2) mg/dL AST 43 H (5-40) units/L ALT 46 (7-56) units/L Alkaline Phosphatase 42 (35-129) units/L Total Protein 6.9 (6.3-8.2) g/dL Albumin 3.6 L (3.9-5) g/dL Calcium panel 03/10/21 Range/Units 06:36 Calcium 8.6 (8.4-10.2) mg/dL Albumin 3.6 L (3.9-5) g/dL Pituitary panel 03/10/21 Range/Units 06:36 Sodium 138 (137-145) mmol/L Potassium 4.1 (3.6-5.0) mmol/L Chloride 104.2 (98-107) mmol/L Carbon Dioxide 23 (22-30) mmol/L BUN 6 L (7-17) mg/dL Creatinine 0.7 (0.6-1.2) mg/dL Glucose 110 H (65-100) mg/dL Calcium 8.6 (8.4-10.2) mg/dL Adrenal panel 03/10/21 Range/Units 06:36 Sodium 138 (137-145) mmol/L Potassium 4.1 (3.6-5.0) mmol/L Chloride 104.2 (98-107) mmol/L Carbon Dioxide 23 (22-30) mmol/L BUN 6 L (7-17) mg/dL Creatinine 0.7 (0.6-1.2) mg/dL Glucose 110 H (65-100) mg/dL Calcium 8.6 (8.4-10.2) mg/dL Total Bilirubin 0.40 (0.1-1.2) mg/dL AST 43 H (5-40) units/L ALT 46 (7-56) units/L Alkaline Phosphatase 42 (35-129) units/L Total Protein 6.9 (6.3-8.2) g/dL Albumin 3.6 L (3.9-5) g/dL
[2021-03-10] MEDS: HYDROcodone/Acetaminophen 7.5-325MG-15ML ORAL LIQD PO PRN (21:57)
[2021-03-11] MEDS: ACETAMINOPHEN IV 1,000 MG/100 ML BOTTLE IV SCH ×3 (01:27→08:25)
[2021-03-11] MEDS: HYDROcodone/Acetaminophen 7.5-325MG-15ML ORAL LIQD PO PRN (04:47)
[2021-03-11] MEDS: KETOROLAC 30 MG/1 ML INJ IV SCH ×2 (04:50→08:26)
[2021-03-11 06:08] LABS: Alanine Aminotransferase 32 units/L (7-56); Albumin 3.4 g/dL (3.9-5); BUN/Creatinine Ratio 10; Blood Urea Nitrogen 6 mg/dL (7-17); Calcium 8.4 mg/dL (8.4-10.2); Hemolysis Index 3
[2021-03-11 06:17] LABS: Basophils # (Auto) 0.1 K/mm3 (0.0-0.1); Basophils % (Auto) 1.4 % (0.0-1.8); Eosinophils # (Auto) 0.1 K/mm3 (0.0-0.4); Eosinophils % (Auto) 1.7 % (0.0-4.3); Hematocrit 35.8 % (30.3-42.9); Hemoglobin 11.3 gm/dl (10.1-14.3); Lymphocytes # (Auto) 1.5 K/mm3 (1.2-5.4); Lymphocytes % (Auto) 30.9 % (13.4-35.0); Mean Corpuscular HGB Conc 32 % (30-34); Mean Corpuscular Volume 84 fl (79-97); Monocytes # (Auto) 0.4 K/mm3 (0.0-0.8); Monocytes % (Auto) 8.4 % (0.0-7.3); Platelet Count 236 K/mm3 (140-440); Red Blood Count 4.25 M/mm3 (3.65-5.03); Red Cell Distribution Width 15.5 % (13.2-15.2)
[2021-03-11 08:33] VITALS: BP 99/62
[2021-03-11] MEDS: ENOXAPARIN 40 MG/0.4 ML INJ SUB-Q SCH (09:01)
[2021-03-11] MEDS: PANTOPRAZOLE 40 MG INJ IV SCH (09:01)
[2021-03-11] MEDS: FLUTICASONE PROPIONATE NASAL SPRAY 16 GM NS SCH (09:02)
--- NOTE | 2021-03-11 10:27 | Discharge Summary ---
Providers - Providers Date of Admission: 03/09/21 06:04 Date of discharge: 03/11/21 Attending physician: SUZY CUELLO MD 03/09/21 11:31 Physical Therapy Evaluation and Treat [CONS] Routine Comment: Reason For Exam: post op bariatric surgery Hospitalization Reason for admission: s/p lap gastric bypass Condition: Good Procedures: lap gastric bypass with hiatal hernia repair Hospital course: Patient had an uneventful postoperative course status post laparoscopic gastric bypass with hiatal hernia repair. Patient remained afebrile and stable and was tolerating clear liquids to at least 30 ounces prior to discharge. Patient's pain was controlled and she had laboratory values and vital signs that were within acceptable limits. Patient was discharged on postoperative day 2 showing no gross clinical signs of leak or bleeding. Patient is to follow-up in the office in 2 weeks. Disposition: 01 HOME / SELF CARE / HOMELESS Final Discharge Diagnosis (Prints w/discharge instructions): morbid obesity, DM Core Measure Documentation - Palliative Care Palliative Care/ Comfort Measures: Not Applicable - Core Measures Any of the following diagnoses?: none Exam - Constitutional Vitals: Temp Pulse Resp BP Pulse Ox 97.6 F 98 H 20 99/62 99 03/11/21 08:14 03/11/21 08:14 03/11/21 08:14 03/11/21 08:14 03/11/21 08:14 General appearance: Present: no acute distress, obese - EENT Eyes: Present: PERRL ENT: hearing intact - Respiratory Respiratory effort: normal - Cardiovascular Heart Sounds: Present: S1 & S2 - Extremities Extremities: no ischemia - Abdominal General gastrointestinal: Present: other (Incisions clean dry and intact, appropriately tender to palpation) Plan Activity: advance as tolerated Diet: clear liquids Wound: open to air, keep clean and dry Follow up with: CARMEN ROSEN [Other] - 7 Days
--- OUTSIDE RECORDS SUMMARY | 2021-03-12 11:33 | External Medical Summary ---
:1970 Author Organization [facility] Address [address] [place] [address] Care Team Providers Name Role Phone Enoch Unavailable [phone] PROBLEMS Type Condition ICD9-CM LRC18-GG Onset Condition W/U Status Risk SNOM ED Notes Code Code Dates Status Code Problem Body mass Z68.41 Active confirmed 414023397 index [BMI]40.0-44. 9, adult Problem Dietary Z71.3 Active confirmed 636022927 counseling and surveillance Problem Gastro-esopha K21.9 Active confirmed 776978 005 geal reflux disease without esophagitis Problem Morbid E66.01 Active confirmed 200604226 (severe) obesity due to excess calories Problem Type 2 E11.9 Active confirmed 369132980 diabetes mellitus without complications Problem Essential I10 Active confirmed 25676186 (primary) hypertension Problem Sleep G47.9 Active confirmed 38122648 disorder, unspecified Problem Anxiety F41.9 Active confirmed 586046089 disorder, unspecified Problem Hyperlipidemi E78.5 Active confirmed 419868 04 a, unspecified ALLERGIES Allergen (clinical drug Drug/Non Drug Allergy Reaction Allergy Type Onset Date Status ingredient) documented on EMR lisinopril Lisinopril([facility] Unknown Drug Allergy Active Code:[address]-05) metformin Metformin HCl([facility] Unknown Drug Allergy Activ e Code:[address]-86) ENCOUNTERS from 1970 to 2021-03-09 Encounter Location Date Provider Diagnosis [facility] [address], [place] [address] IMMUNIZATIONS No Information SOCIAL HISTORY Sex Assigned At : Social History Observation Description Sex Assigned At Unknown REASON FOR REFERRAL from 1970 to 2021-03-09 Reason Gastric Bypass Diagnosis 1 Gastro-esophageal reflux dis ease without esophagitis (K21.9) Diagnosis 2 Type 2 diabetes mellitus wit hout complications (E11.9) Diagnosis 3 Morbid (severe) obesity due to excess calories (E66.01) Diagnosis 4 Hyperlipidemia, unspecified (E78.5) Diagnosis 5 Essential (primary) hyperten nate (I10) Diagnosis 6 Anxiety disorder, unspecifie d (F41.9) Diagnosis 7 Sleep disorder, unspecified (G47.9) Diagnosis 8 Dietary counseling and surve illance (Z71.3) Diagnosis 9 Body mass index [BMI]40.0-44 .9, adult (Z68.41) Diagnosis 10 Pain in right shoulder (M25. 511) Diagnosis 11 Low back pain (M54.5) Referral Organization [facility] Referring Provider First Name Juanito Referring Provider Last Name Enoch Referring Provider Specialty Surgery Referred Provider [facility], - Referral Priority Routine VITAL SIGNS No information MEDICATIONS Medication SIG (Take, Route, Notes Start Date End Date Status Frequency, Duration) Protonix 40 MG 1 packet mixed with A ctive apple juice or applesauce Orally Once a day for 30 day(s) LORazepam 1 MG 1 tablet at bedtime as needed A ctive as needed Orally Once a day Albuterol Sulfate 108 1 puff as needed Active (90 Base) MCG/ACT Inhalation every 4 hrs Esomeprazole 1 capsule Orally Once Feb, Active Magnesium 40 MG a day Ondansetron 4 MG 1-2 tablet on the Feb, Active tongue and allow to dissolve Orally q 4-6 hours prn nausea Cozaar 50 MG 1 tablet Orally Once Ac tive a day for 30 day(s) Ferrous Sulfate 325 1 tablet Orally Once TID Active (65 Fe) MG a day for 30 day(s) Voltaren 1 % as directed as needed Active Externally Basaglar KwikPen 100 as directed Not -Taking UNIT/ML Subcutaneous Victoza 18 MG/3ML as directed Active Subcutaneous Crestor 20 MG 1 tablet Orally Once A ctive a day for 30 day(s) PROCEDURES No Information RESULTS No Results REASON FOR VISIT Gastric Bypass MEDICAL (GENERAL) HISTORY Type Description Date Medical History htn Medical History diabetes Medical History back pain Medical History gerd Medical History hyperlipidemia Medical History right shoulder arthritis Medical History iron def anemia Medical History anxiety/depression Medical History asthma Medical History hx PUD Surgical History lap left colectomy 2010 Surgical History right shoulder surgery 2012 Surgical History 2006 Hospitalization History as above Goals Section No Information Health Concerns No Information MEDICAL EQUIPMENT No Information MENTAL STATUS No Information FUNCTIONAL STATUS No Information ASSESSMENTS No Information PLAN OF TREATMENT Medication Medication Name Sig Start Date Stop Date Esomeprazole Magnesium 40 MG 1 capsule Orally Once a day Feb, Ondansetron 4 MG 1-2 tablet on the tongue and Feb, allow to dissolve Orally q 4-6 hours prn nausea Referrals Referral Date Details Gastric Bypass Insurance Providers Payer Name Payer Payer Insured Name Patient Coverage Covera ge End Address Phone Relationship to Start Date Oleksandr e Insured Medicaid [phone] JACKELYN LOPEZ self [id number] [place] [address]
== END 2021-03-11 12:30 | disposition home or self-care (01) | DRG 621 ==
LOC: 3A 06:04 → 4A 12:38
PROVIDERS: ADMIT Surgery; ATTEND Surgery
PROC: 0D164ZA Bypass Stomach to Jejunum, Percutaneous Endoscopic Approach (ICD-10-PCS; principal; 2021-03-09)
PROC: 0BQT4ZZ Repair Diaphragm, Percutaneous Endoscopic Approach (ICD-10-PCS; 2021-03-09)
PROC: 0DNU4ZZ Release Omentum, Percutaneous Endoscopic Approach (ICD-10-PCS; 2021-03-09)
DX: E66.01 Morbid (severe) obesity due to excess calories (principal); K44.9 Diaphragmatic hernia without obstruction or gangrene; J45.909 Unspecified asthma, uncomplicated; I10 Essential (primary) hypertension; Z68.42 Body mass index [BMI] 45.0-49.9, adult; Z20.822 Contact with and (suspected) exposure to COVID-19; E11.9 Type 2 diabetes mellitus without complications
CPT/HCPCS: 36415; 80053; 82962; 84703; 85025; 85027; 88307; G0378; J1815; J3490; J7121; C9113; J0131; J1100; J1650; J1885; J1956; J2405; J2704; J2710; J3475; J7120; U0003

== ENCOUNTER 2021-08-14 11:43 | Outpatient (CLI) | payer MEDICAID ==
[2021-08-14 12:21] LABS: Hematocrit 35.1 % (30.3-42.9); Hemoglobin 11.5 gm/dl (10.1-14.3); Mean Corpuscular HGB Conc 33 % (30-34); Mean Corpuscular Volume 84 fl (79-97); Platelet Count 290 K/mm3 (140-440); Red Blood Count 4.18 M/mm3 (3.65-5.03); Red Cell Distribution Width 15.2 % (13.2-15.2)
[2021-08-14 12:36] LABS: Alanine Aminotransferase 12 units/L (7-56); Albumin 4.1 g/dL (3.9-5); Blood Urea Nitrogen 9 mg/dL (7-17); Calcium 9.7 mg/dL (8.4-10.2); Hemolysis Index 15
[2021-08-14 12:39] LABS: BUN/Creatinine Ratio 15
== END 2021-08-14 11:44 | disposition home or self-care (01) ==
LOC: LAB 11:43
PROVIDERS: ATTEND Internal Medicine
DX: K21.9 Gastro-esophageal reflux disease without esophagitis (principal); G47.33 Obstructive sleep apnea (adult) (pediatric); I10 Essential (primary) hypertension; E78.00 Pure hypercholesterolemia, unspecified; J32.9 Chronic sinusitis, unspecified; J45.909 Unspecified asthma, uncomplicated; Z68.34 Body mass index [BMI] 34.0-34.9, adult
CPT/HCPCS: 36415; 80053; 82785; 84436; 84443; 85027